=== PATIENT | male | born 1945 | race Caucasian/White ===

== ENCOUNTER → 2021-07-07 | Outpatient (CLI) | payer MEDICARE, OTHER ==
[~2021-07-07] MED LIST: ALBU90OI INH; AMLO10 PO; ATEN100 PO; CARV25 PO; FURO20 PO; LEVSOD112 PO; LOSA50 PO; MASOPHEN325 M3 PO; MELA3 PO
[2021-07-09 01:10] LABS: BASO (ABSOLUTE) 0.1 x10E3/uL (0.0-0.2); BASOS 0 % (Not Estab.); EOS 3 % (Not Estab.); EOS (ABSOLUTE) 0.3 x10E3/uL (0.0-0.4); HEMATOCRIT 45.7 % (37.5-51.0); HEMOGLOBIN 15.7 g/dL (13.0-17.7); IMMATURE GRANULOCYTES 0 % (Not Estab.); LYMPHS 21 % (Not Estab.); LYMPHS (ABSOLUTE) 2.4 x10E3/uL (0.7-3.1); MCH 28.4 pg (26.6-33.0); MCHC 34.4 g/dL (31.5-35.7); MCV 83 fL (79-97); MONOCYTES 7 % (Not Estab.); MONOCYTES(ABSOLUTE) 0.8 x10E3/uL (0.1-0.9); NEUTROPHILS 69 % (Not Estab.); PLATELETS 380 x10E3/uL (150-450); RBC 5.52 x10E6/uL (4.14-5.80); RDW 12.9 % (11.6-15.4); WBC 11.6 x10E3/uL (3.4-10.8)
== END | disposition home or self-care (01) ==
LOC: EDSTATUS 10:47 → LAB RH 14:27
PROVIDERS: Internal Medicine
DX: U07.1 COVID-19 (principal)
CPT/HCPCS: 85025

== ENCOUNTER 2021-07-12 17:51 | Inpatient (IN) | payer MEDICARE, OTHER ==
[~2021-07-12] VITALS: Ht 182.9 cm; Wt 99.4 kg
[2021-07-12 18:40] LABS: BASOPHILS ABSOLUTE AUTO 0.06 K/mm3 (0.00-0.23); BASOPHILS PERCENT AUTO 1 % (0-2); EOSINOPHILS ABSOLUTE AUTO 0.24 K/mm3 (0.00-0.68); EOSINOPHILS PERCENT AUTO 2 % (0-6); Hematocrit 49.6 % (37.0-53.0); Hemoglobin 16.3 g/dL (13.5-17.5); IMMATURE GRAN ABSOLUTE AUTO 0.05 K/mm3 (0.00-0.10); IMMATURE GRAN PERCENT AUTO 0 % (0-1); LYMPHOCYTES PERCENT AUTO 23 % (21-46); MONOCYTES ABSOLUTE AUTO 0.92 K/mm3 (0.16-1.47); MONOCYTES PERCENT AUTO 7 % (4-13); Mean Corpuscular HGB 27.9 pg (26.0-34.0); Mean Corpuscular HGB Conc 32.9 g/dL (31.5-36.5); Mean Corpuscular Volume 85 fL (80-100); Mean Platelet Volume 10.7 fL (9.1-12.4); NEUTROPHILS ABSOLUTE AUTO 8.66 K/mm3 (1.96-9.15); NEUTROPHILS PERCENT AUTO 67 % (41-73); Platelet Count 422 K/mm3 (150-400); RDW Coefficient Variation 12.5 % (11.7-14.2); RDW Standard Deviation 38.1 fL (35.1-46.3); Red Blood Cell Count 5.84 M/mm3 (4.30-5.90); White Blood Cell Count 12.83 K/mm3 (4.00-11.30)
[2021-07-12 18:46] LABS: Albumin, Blood 3.7 g/dL (3.4-5.0); Albumin/Globulin Ratio 0.9 (0.8-1.8); Bilirubin, Total 0.9 mg/dL (0.1-1.0); Bun/Creatinine Ratio 15.8 (12.0-20.0); Creatinine, Blood 1.39 mg/dL (0.60-1.20); Globulin, Blood 4.1 g/dL (2.2-4.0); Total Protein, Blood 7.8 g/dL (6.4-8.2)
[2021-07-12 19:03] LABS: Source, Urine Clean Catch
[2021-07-12 19:05] LABS: Bilirubin, Urine Neg (Neg); Blood, Urine 2+ (Neg); Glucose Qualitative, Urine Neg (Neg); Ketones, Urine Neg (Neg); Leukocyte Esterase, Urine 3+ (Neg); Nitrite, Urine Neg (Neg); Protein, Urine Neg (Neg); Specific Gravity, Urine 1.015 (1.003-1.022); Urobilinogen, Urine NORM (Normal)
[2021-07-12 19:13] LABS: Appearance, Urine Clear (Clear); Color, Urine Pale Yellow (P-Yellow)
[2021-07-12 19:15] LABS: Bacteria Mod /hpf; Mucus Light (0-Heavy); Squamous Epithelial Cells Few /hpf (Few)
[2021-07-12 19:16] LABS: Amorphous Light (0-Heavy)
[2021-07-13] MEDS ORDERED: MASOPHEN325 M3 PO (00:51)
[2021-07-13] MEDS ORDERED: ALBU90OI INH (00:52)
[2021-07-13] MEDS ORDERED: AMLO10 PO (00:53)
[2021-07-13] MEDS ORDERED: CARV25 PO (00:53)
[2021-07-13] MEDS ORDERED: LEVSOD112 PO (00:54)
[2021-07-13] MEDS ORDERED: FURO20 PO (00:54)
[2021-07-13] MEDS ORDERED: LOSA50 PO (00:55)
[2021-07-13] MEDS ORDERED: MELA3 PO (00:55)
[2021-07-13 04:58] LABS: BASOPHILS ABSOLUTE AUTO 0.06 K/mm3 (0.00-0.23); BASOPHILS PERCENT AUTO 1 % (0-2); EOSINOPHILS ABSOLUTE AUTO 0.35 K/mm3 (0.00-0.68); EOSINOPHILS PERCENT AUTO 3 % (0-6); Hematocrit 46.7 % (37.0-53.0); Hemoglobin 15.4 g/dL (13.5-17.5); IMMATURE GRAN ABSOLUTE AUTO 0.04 K/mm3 (0.00-0.10); IMMATURE GRAN PERCENT AUTO 0 % (0-1); LYMPHOCYTES ABSOLUTE AUTO 3.07 K/mm3 (0.84-5.20); LYMPHOCYTES PERCENT AUTO 24 % (21-46); MONOCYTES ABSOLUTE AUTO 0.92 K/mm3 (0.16-1.47); MONOCYTES PERCENT AUTO 7 % (4-13); Mean Corpuscular HGB 28.2 pg (26.0-34.0); Mean Corpuscular Volume 86 fL (80-100); NEUTROPHILS ABSOLUTE AUTO 8.31 K/mm3 (1.96-9.15); NEUTROPHILS PERCENT AUTO 65 % (41-73); Platelet Count 360 K/mm3 (150-400); RDW Coefficient Variation 12.5 % (11.7-14.2); RDW Standard Deviation 38.6 fL (35.1-46.3); Red Blood Cell Count 5.46 M/mm3 (4.30-5.90); White Blood Cell Count 12.75 K/mm3 (4.00-11.30)
[2021-07-13 05:25] LABS: Albumin, Blood 3.2 g/dL (3.4-5.0); Albumin/Globulin Ratio 0.8 (0.8-1.8); Bilirubin, Total 0.8 mg/dL (0.1-1.0); Bun/Creatinine Ratio 18.6 (12.0-20.0); Calcium, Blood 8.8 mg/dL (8.5-10.1); Creatinine, Blood 1.29 mg/dL (0.60-1.20); Globulin, Blood 3.8 g/dL (2.2-4.0); Potassium, Blood 3.7 mmol/L (3.5-5.5)
--- NOTE | 2021-07-13 07:55 | NUR ---
TRANSF[facility] FROM [facility] ON 07/05/21 DUE TO BEING COVID POS. CAME TO US 07/12/21 FOR AMS AND SHUFFLING GATE, WHICH WERE NEW FOR HIM. CONCERNS FOR STROKE. CT SHOWED POSSIBLE SUBACUE RIGHT PARIETAL LOBE STROKE. RUNNING AFIB WITH PVC. UNSTEADY. STOIC AFFECT AND SLOW TO RESPOND. CANNOT SQUEEZE FINGERS AT ALL WITH HIS LEFT HAND. MANY IMAGING STUDIES BEING DONE TODAY.
--- NOTE | 2021-07-13 18:24 | NUR ---
Patient was alert and orient x2. He had an eval by PT who recommended that he can transfer and ambulate with one person. Patient was cont and incont of bladder. His entire bed was changed after an incont episode. Other times he requested to use the bathroom but was unsure how "the urinal works". Patient was compliant with medications but refused his 5pm med along with dinner. Patient could tell me his name but not where we are. He stated, "I'm in this RV stuck, no phone, no nothing!" RN spoke with patient's for an update on him.
--- NOTE | 2021-07-14 06:08 | NUR ---
PATIENT HAD FLAT AFFECT ALL SHIFT. HE DID TAKE HIS PM MEDICATIONS. CLIENT DEVELOPMENT DIRECTOR ASKED IF SHE COULD SEE IF HE WAS WET AND HE CUSSED AT HER THIS AM. 50-69% STENOSIS PROXIMAL RIGHT ICA. EF 65-70% PER ECHO REPORT. 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
--- NOTE | 2021-07-14 07:36 | NUR ---
RN recvd handoff of patient care from TAYLOR Weathers. Patient was in bed lying down but not asleep. His eye were opened but appeared in no distress. RN offered fluids and patient responded yes. Patient drank about 4oz of orange juice
--- NOTE | 2021-07-14 18:08 | NUR ---
Patient was alert and orient, his affect was restricted and mood was congruent. Patient talked very minimal today only answering with "no" or "I think so". He was incontinent of bladder and had no BM today. Patient complained of no pain and was compliant with taking scheduled medicaitons. Patient only got out of bed to work with therapy but denied to sit in the chair when offered. Patient is off of isolation precautions. Cont to monitor while caring for this patient.
--- NOTE | 2021-07-15 06:39 | NUR ---
PATIENT IS STILL SLEEPING THE ENTIRE SHIFT. HE TOOK ALL PRESCRIBED MEDICATIONS AND ALLOWED US TO MAKE SURE HE DID NOT NEED HIS ATTENDS OR GODWIN PAD CHANGED. NO URINE OUTPUT DURING THE SHIFT. STARTED ON ASPIRING 81MG AND XARELTO. UC SHOWS 100,000+ STAPH SPECIES. NOTHING FURTHER NOTED ABOUT HIS ACUTE MCA WATERSHED INFARCT.
--- NOTE | 2021-07-15 09:44 | NUR ---
RN recvd handoff of patient care from TAYLOR Weathers at 0650 this morning. Patient was in bed and asleep. He appeared in no distress
[2021-07-15] MEDS ORDERED: ATEN100 PO (12:56)
--- NOTE | 2021-07-15 19:14 | NUR ---
Patient was alert and orient, he worked with therapy today both occupational and physical. He was able to express his needs by using the call light. He was compliant with taking meds, no complaints of pain, and was continent of bowel and bladder. Cont to monitor this patient's care
--- NOTE | 2021-07-16 04:20 | NUR ---
SHIFT SUMMARY ADMITTED FOR CVA. FULL CODE. HE IS FROM [facility]. HE HAS LEFT SIDED DEFICITS. HE IS CONFUSED AND DOES NOT CALL APPROPRIATELY. HE IS IMPULSIVE. HE IS ON XARELTO. IV ANTIB RX ARE SCHEDULED. HE ALSO HAS A UTI. RECENT HX OF A BRAIN HEMORRHAGE. IMAGING SHOWS THIS NEWEST EVENT TO BE ISCHEMIC. BED ALARM IS ON
--- NOTE | 2021-07-16 16:37 | NUR ---
PT TRANSFERED THE PT WAS TRANSFERED VIA WHEELCHAIR ACCOMPANIED BY ESCORT TO [facility]. REPORT WAS CALLED TO RN. THE PT APPEARED TO BE BREATHING EASILY ON RA AT THE TIME OF DC. BELONGINGS RELEASED TO THE PATIENT
== END 2021-07-16 16:18 | DRG 65 ==
LOC: ER 17:51 → MEDS 17:52 → ER 07-13 00:20 → MEDS 07-13 00:20 → ENPENDDIS 07-16 15:02 → MEDS 07-16 16:18
PROVIDERS: Emergency Medicine; ADMIT Internal Medicine
DX: I63.9 Cerebral infarction, unspecified (principal); I48.20 Chronic atrial fibrillation, unspecified; I10 Essential (primary) hypertension; G20 Parkinson's disease; F02.80 Dementia in other diseases classified elsewhere, unspecified severity, without behavioral disturbance, psychotic disturbance, mood disturbance, and anxiety; E03.9 Hypothyroidism, unspecified; I65.21 Occlusion and stenosis of right carotid artery; Z79.899 Other long term (current) drug therapy
CPT/HCPCS: 36415; 70450; 70551; 80053; 81001; 82947; 85025; 87077; 87086; 87186; 93005; 93010; 93306; 93880; 94760; 96365; 96372; 96376; 97110; 97112; 97116; 97162; 97166; 97530; 97535; 99285-25; A9270; G0378; J0696; J1650